=== PATIENT | male | born 1995 | race African-American/Black ===

== ENCOUNTER 2017-02-02 18:55 | Emergency (ER) | payer OTHER ==
--- NOTE | ~2017-02-02 | US115 ---
[facility] A Service [facility] RADIOLOGY TEXT RESULTS PATIENT: NICOLE LANDERS LOCATION: SED : [birth year] UNIT #: [id number] AGE: [address]: RUI MCKEON SEX: M ORDER DR: [id number] [place] [id number] E MR#: [id number] Acc #: [id number] NAME: NICOLE LANDERS : 1995 SEX: M STUDY DATE/TIME: 02/02/2017 21:00 UNIT: SED ROOM: STUDY DESCRIPTION: US Scrotum and Contents Attending Physician: Rui Mckeon Aprn Ordering Physician: Rui Mckeon Aprn Primary Care Physician: No Primary Care Physician MEDICAL IMAGING REPORT This report is preliminary unless electronic signature is present. EXAM Scrotal ultrasound examination including Doppler ultrasound vascular evaluation 02/02/2017 HISTORY 21-year-old male in the ED complaining of 1-day history of left testicular pain. TECHNIQUE Scrotal ultrasound examination was performed using coulter-scale, spectral Doppler and color flow Doppler ultrasound imaging. FINDINGS Both testicles are normal in size and ultrasound appearance. No mass or other focal testicular lesion is identified. There is no evidence of testicular edema on the left or right. Small benign epididymis cyst incidentally noted on the right and on the left. Doppler vascular evaluation is within normal limits. There is no evidence of testicular torsion, acute epididymitis or orchitis. IMPRESSION 1. No acute scrotal abnormality is demonstrated. There is no Doppler ultrasound evidence of testicular torsion, acute epididymitis or orchitis. 2. Both testes are normal in size and appearance. 3. Incidentally noted tiny benign cysts in each epididymis. Dictated by... Kush Paez M.D. [facility] A Service [facility] RADIOLOGY TEXT RESULTS PATIENT: NICOLE LANDERS LOCATION: SED : [birth year] UNIT #: [id number] AGE: [address]: RUI MCKEON SEX: M ORDER DR: THIS IS AN ELECTRONICALLY VERIFIED REPORT Kush Paez M.D. at 02/06/2017 10:33 AM DILEEP/jairo TD: 02/03/2017 01:09 JOB #: [id number] MEDICAL IMAGING REPORT Page 1 of 1
[2017-02-02 19:58] LABS: URINE SOURCE CLEAN CATCH
[2017-02-02 20:00] LABS: URINE APPEARANCE CLEAR; URINE BILIRUBIN NEG (NEG); URINE BLOOD NEG (NEG); URINE COLOR YELLOW; URINE GLUCOSE NEG (NORM); URINE KETONE NEG (NEG); URINE LEUKOCYTE ESTERASE NEG (NEG); URINE NITRATE NEG (NEG); URINE PROTEIN NEG (NEG); URINE SPECIFIC GRAVITY 1.025 (1.003-1.035); URINE UROBILINOGEN 0.2 MG/DL (NORM)
[2017-02-02 20:02] LABS: MICRO INDICATED? NO
== END 2017-02-02 22:15 | disposition home or self-care (01) ==
LOC: SED 18:55
PROVIDERS: Nurse Practitioner Family
DX: N50.812 Left testicular pain (principal)
CPT/HCPCS: 76870; 81003; 99284